=== PATIENT | female | born 1975 | race Caucasian/White ===

== ENCOUNTER → 2022-02-16 | Outpatient (CLI) | payer OTHER | LOC: OPSV 08:00 | DX: Z53.9 Procedure and treatment not carried out, unspecified reason (principal) | CPT/HCPCS: 36430; J7050; P9016 ==

== ENCOUNTER 2022-03-28 12:22 | Emergency (ER) | payer OTHER ==
[2022-03-28 19:55] LABS: HEMOGLOBIN 11.5 gm/dl (12.3-15.3); RED BLOOD COUNT 5.14 M/UL (4.00-5.10); WHITE BLOOD COUNT 5.2 K/UL (4.5-11.0)
[2022-03-28 20:31] LABS: BUN/CREATININE RATIO 15 (0-10)
== END 2022-03-28 21:25 | disposition home or self-care (01) ==
LOC: ER1 12:22
PROVIDERS: Student in an Organized Health Care Education/Training Program
DX: D64.9 Anemia, unspecified (principal); R07.9 Chest pain, unspecified
CPT/HCPCS: 71045; 80053; 82550; 82553; 84484; 85025; 85379; 86850; 86900; 86901; 93005; 99285